=== PATIENT | male | born 1975 | race Caucasian/White ===

== ENCOUNTER 2021-08-20 06:43 | Emergency (ER) | payer OTHER, SELFPAY ==
--- NOTE | ~2021-08-20 | CT_ITS ---
EXAMINATION: CT brain wo con EXAM DATE: 08/20/2021 08:42 INDICATION: Sudden onset of right eye pain . History of glaucoma. Hazy vision. TECHNIQUE: Spiral CT of the head was performed without contrast. Axial, coronal and sagittal images were reviewed. The dose-length product (DLP) for this examination was 605.33 mGy-cm. The exposure w as tailored according to patient size, and iterative reconstruction (ASIR) was used as additional dos e reduction technique. There is no prior study for comparison. FINDINGS: There is no acute intraparenchymal hemorrhage. No evidence of intraparenchymal brain mass lesion. No evidence of acute infarction. There is no mass effect or midline shift. The ventricles are normal in size. There are no extra-axial collections. There are no acute calvarial fractures. T he orbits are unremarkable. Soft tissue is unremarkable. The visualized sinuses and mastoid air rc ls are well aerated. IMPRESSION: 1. No acute intracranial findings. Reviewed, dictated and finalized at location A. VOLTAGE ELECTRICIAN
[2021-08-20 06:49] VITALS: BP 128/80; PULSE 70; RESP 20; TEMP 36.6; O2SAT 98
--- NOTE | 2021-08-20 08:06 | ED.EYEPROB ---
HPI - Eye Problem General Chief complaint: Eye Problems Stated complaint: right eye pain Time Seen by Provider: 08/20/21 08:05 Source: patient and RN notes reviewed Mode of arrival: ambulatory Limitations: no limitations History of Present Illness HPI Narrative: Patient is 46 years old white male woke up this morning with his nurse of the right eye. Few minutes later started having soreness around the eye. Was 10 out of 10, patient had ibuprofen, the soreness improved to 3 out of 10 at this time. History of glaucoma bilaterally, on Lumigan eyedrops. Patient does not use contact lenses or glasses. Patient denies any fever, chills, nausea, vomiting, headache, redness of the eye. The soreness around the eye lasted for about 15 minutes. Patient still feeling hazy of the right Related Data Allergies Allergy/AdvReac Type Severity Reaction Status Date / Time No Known Allergies Allergy Verified 08/20/21 06:54 Review of Systems Review of Systems: CONSTITUTIONAL: Denies fever, chills, or sweats. EYES: Denies redness, discharge ENT: Denies rhinorrhea, congestion, sore throat, or otalgia. CARDIOVASCULAR: Denies chest pain, palpitations, or edema. RESPIRATORY: Denies cough or dyspnea. GASTROINTESTINAL: Denies abdominal pain, nausea, vomiting, or diarrhea. GENITOURINARY: Denies dysuria or hematuria. SKIN: Denies rash or itching. MUSCULOSKELETAL: Denies back pain, joint pain, or myalgia. NEUROLOGIC: Denies headache, numbness, or weakness. PSYCHIATRIC: Denies anxiety or depression. Exam Narrative: General appearance: Well-developed, well-nourished Skin: Normal color Head: Normocephalic, nontraumatic Eyes: Clear conjunctiva, no redness, normal size pupils, IOP is 17 right eye, 14 left eye ENT: Oropharynx normal, ears normal, nose normal Neck: Supple, nontender Chest and respiratory: Airway patent, no respiratory distress, no accessory muscle use Heart: Regular rate/rhythm Abdomen: Soft, nontender, no organomegaly, quiet bowel sounds Vascular: Normal peripheral pulses, normal capillary refill. 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 He suggested that patient can follow-up with his glaucoma doctor tomorrow, and his symptoms does not indicate acute glaucoma at this time even if we do not have the intraocular pressure reading. His right eye 2020 with blurry vision which could indicate dryness of the eye. Artificial teardrops 4 times a day will be appropriate. And if the patient does not like to contact his court operations clerk he can call me aT [phone] Date: 08/20/21 Time: 08:55 Vital Signs Vital signs: Vital Signs Temperature 36.6 C 08/20/21 06:49 Pulse Rate 70 08/20/21 06:49 Respiratory Rate 20 08/20/21 06:49 Blood Pressure 128/80 08/20/21 06:49 Pulse Oximetry 98 08/20/21 06:49 Temperature 36.6 C 08/20/21 06:49 Pulse Rate 70 08/20/21 06:49 Respiratory Rate 20 08/20/21 06:49 Blood Pressure 128/80 08/20/21 06:49 Pulse Oximetry 98 08/20/21 06:49 MDM - Eye Problem MDM Narrative Medical decision making narrative: Sudden onset of right eye pain with blurry vision, right eye visual acuity is 20/20, IOP right eye is 17, left eye is 13 there is no headache, nausea, vomiting. Eye exam showed no redness, no tears, pupil within normal size compared to the left 1. Differential Diagnosis Differential diagnosis: Likely other (Glaucoma) Imaging Data Radiologist's impression: Impressions Head CT 08/20/21 0
[2021-08-20 09:15] VITALS: BP 124/86; PULSE 69; RESP 16; O2SAT 100
== END 2021-08-20 09:15 | disposition home or self-care (01) ==
PROVIDERS: Emergency Provider Emergency Medicine
DX: H53.8 Other visual disturbances (principal); H40.9 Unspecified glaucoma
CPT/HCPCS: 70450; 99284

== ENCOUNTER 2021-12-02 14:50 | Emergency (ER) | payer OTHER, SELFPAY ==
--- NOTE | ~2021-12-02 | XR_ITS ---
EXAMINATION: XR chest 2V Exam Date/Time: 12/02/2021 15:40 CDT HISTORY: cough/SORE THROAT/BODY ACHES SINCE 11/30, NO CARDIAC HX Comparison: None available. RESULT: Lines, tubes, and devices: None. Lungs and pleura: Clear. Cardiomediastinal silhouette: Normal cardiomediastinal silhouette. Other: No acute osseous or upper abdominal finding. IMPRESSION: No acute cardiopulmonary process. Reviewed, dictated and finalized at location K.
[2021-12-02 14:56] VITALS: BP 123/86; PULSE 86; RESP 16; TEMP 36.7; O2SAT 99
--- NOTE | 2021-12-02 15:33 | ED.GENADULT ---
HPI - General Adult General Chief complaint: Unspecified Stated complaint: sore throat, muscle hives Time Seen by Provider: 12/02/21 14:55 Source: RN notes reviewed History of Present Illness HPI narrative: Patient presents emergency department from home for upper respiratory infection. Patient states symptoms began 2 days ago. States that symptoms began with a sore throat states is associated with a cough that is been nonproductive and a temperature up to 100 ?F that was less elevated yesterday he states that he has had no ear pain, rhinorrhea, chest pain, shortness of breath, abdominal pain nausea vomiting diarrhea or any other symptoms. Patient states he has been taking ibuprofen for the symptoms with minimal relief states he has had his COVID vaccination and booster Related Data Home Medications Medication Instructions Recorded Confirmed bimatoprost 0.01 % eye drops drp 12/02/21 (Gigi) bupropion HCl 150 mg 24 hr tablet, tablet PO 12/02/21 extended release trazodone 50 mg tablet tablet 12/02/21 Allergies Allergy/AdvReac Type Severity Reaction Status Date / Time No Known Allergies Allergy Verified 12/02/21 14:59 Review of Systems Review of Systems: Gen.: Reports fevers and muscle aches Eyes: Denies eye pain or visual change ENT: See HPI Respiratory: Denies shortness of breath reports cough CV: Denies chest pain or palpitations GI: Denies abdominal pain nausea, emesis or diarrhea Musculoskeletal: Denies back pain or muscle pain Neuro: Denies numbness, tingling, weakness or focal weakness Skin: Denies rash Except as documented, all other systems reviewed and negative [facility] Past Medical History Medical History (Updated 12/02/21 @ 16:25 by Charlie Menendez DO) Patient denies significant medical history Social History Social History (Updated 12/02/21 @ 15:35 by Charlie Menendez DO) Smoking status: Never smoker Exam Narrative: APPEARANCE: No acute distress, nontoxic, resting in bed EYES: EOMI HEENT: Normocephalic, atraumatic, TMs clear bilaterally nares patent oral mucosa moist erythema the posterior pharynx bilateral tonsils no exudate seen, uvula midline, airway patent, tolerating own secretions, voice normal RESPIRATORY: No respiratory distress Clear to auscultation bilaterally with no rhonchi wheezing or rales. CARDIOVASCULAR: Regular rate and rhythm without murmurs rubs or gallops. ABDOMINAL: Soft, nontender, nondistended, no rebound or guarding MUSCULOSKELETAl: Moves all extremities. No clubbing, cyanosis or edema. NEURO: Awake and alert. Following commands, speech normal, no focal deficits SKIN:: Warm, dry. No rashes lesions or abrasions PSYCHIATRIC: Normal affect/mood, Course Course Emergency Course: Discussed with patient results of workup and diagnosis. Discussed need for follow-up with primary care, proper use of medication, and reasons to return to the emergency department. Patient understands and agrees to current treatment plan discussed with patient need for COVID testing patient would prefer to go home and will testing outpatient in self-isolation until results of testing is returned Vital Signs Vital signs: Vital Signs Temperature 98.1 F 12/02/21 14:56 Pulse Rate 86 12/02/21 14:56 Respiratory Rate 16 12/02/21 14:56 Blood Pressure 123/86 12/02/21 14:56 Pulse Oximetry 99 12/02/21 14:56 Oxygen Delivery Room Air 12/02/21 14:56 Temperature 98.1 F 12/02/21 14:56 Pulse Rate 86 12/02/21 14:56 Respiratory Rate 16 12/02/21 14:56 Blood Pressure 123/86 12/02/21 14:56 Pulse Oximetry 99 12/02/21 14:56 Oxygen Delivery Room Air 12/02/21 14:56 Medical Decision Making Vital Signs Vital Signs: Vital Signs Temperature 98.1 F 12/02/21 14:56 Pulse Rate 86 12/02/21 14:56 Respiratory Rate 16 12/02/21 14:56 Blood Pressure 123/86 12/02/21 14:56 Pulse Oximetry 99 12/02/21 14:56 Oxygen Delivery Room Air 12/02/21 14:56
[2021-12-02] MEDS: IBUPROFEN 600 MG TABLET PO (16:29)
[2021-12-02] MEDS: AMOXICILLIN 500 MG CAPSULE PO (16:29)
[2021-12-02 19:51] LABS: SARS-CoV-2 RNA PCR Negative
== END 2021-12-02 16:34 | disposition home or self-care (01) ==
PROVIDERS: Emergency Provider Emergency Medicine
DX: J02.9 Acute pharyngitis, unspecified (principal); Z20.822 Contact with and (suspected) exposure to COVID-19
CPT/HCPCS: 71046; 87081; 87804; 87880; 99283; A9270; C9803; U0003; U0005

== ENCOUNTER 2021-12-18 21:24 | Emergency (ER) | payer OTHER, SELFPAY ==
--- NOTE | ~2021-12-18 | CT_ITS ---
EXAMINATION: CT abdomen pelvis wo con DATE: 12/19/2021 00:37 INDICATION: Bilateral flank pain TECHNIQUE: Computed tomography (CT) of the abdomen and pelvis was performed without intravenous contr ast. The dose-length product (DLP) was 632.41 mGy-cm. Automated exposure control and iterative recons truction technique were employed. COMPARISON: None FINDINGS: The lung bases are clear. The heart size is normal. There is a 5 mm cyst of the liver. The spleen, pancreas, and adrenal glands are normal. The gallbladder is contracted but normal in appearan ce. There is a 2.1 cm cyst of the left kidney. The right kidney is unremarkable. No stones are identi fied in the kidneys, ureters, or bladder. There is no hydronephrosis or hydroureter. No pathologicall y enlarged abdominal or pelvic lymph nodes are identified. There is no free intraperitoneal gas or ev idence of bowel obstruction. The appendix is normal. There is moderate lumbar spondylosis at L5-S1. A small fat-containing umbilical hernia is noted. IMPRESSION: 1. No CT correlate for the patient's symptoms. No urolithiasis identified. Reviewed, dictated and finalized at location A.
[2021-12-18 21:40] VITALS: BP 137/81; PULSE 74; RESP 20; TEMP 36.4; O2SAT 100
[2021-12-18 22:00] LABS: Appearance Urine Clear (Clear); Bilirubin Urine Negative (Negative); Color Urine Yellow (Yellow); Glucose Urine UA Negative (Negative); Ketones Urine Negative (Negative); Leukocyte Esterase Ur Negative LEU/UL (Negative); Nitrate Urine Negative (Negative); Protein Urine Negative (Negative); Specific Grav Ur >= 1.030 (1.001-1.035); Urobilinogen Urine 0.2 mg/dL (<2.0)
[2021-12-18 22:01] LABS: Add Urine Microscopic? YES; Blood Urine Trace-Intact (Negative)
[2021-12-18 22:04] LABS: Mucus Urine Rare /lpf; RBC Urine 0-2 /hpf (0-2); WBC Urine 0-3 /hpf
--- NOTE | 2021-12-19 00:26 | ED.MALEGU ---
HPI - Male Genitourinary General Chief complaint: Urogenital-Male Stated complaint: bilateral flank pain Time Seen by Provider: 12/19/21 00:05 History of Present Illness HPI Narrative: 46-year-old male presents the emergency room for evaluation of bilateral kidney pain. Patient states that he was recently diagnosed with epididymitis, just completed a course of antibiotics. Patient states that has tenderness to his kidneys, and the pain is worse with rotation of the lumbar spine and when he walks. Patient denies any dysuria. Patient denies any abdominal pain radiating pain or fever. Patient denies nausea vomiting diarrhea or constipation. Related Data Home Medications Medication Instructions Recorded Confirmed bimatoprost 0.01 % eye drops drp 12/02/21 (Gigi) bupropion HCl 150 mg 24 hr tablet, tablet PO 12/02/21 extended release trazodone 50 mg tablet tablet 12/02/21 Allergies Allergy/AdvReac Type Severity Reaction Status Date / Time No Known Allergies Allergy Verified 12/18/21 21:43 Review of Systems Review of Systems: CONSTITUTIONAL: Denies fever, chills, or sweats. EYES: Denies visual changes, redness, or discharge. ENT: Denies rhinorrhea, congestion, sore throat, or otalgia. CARDIOVASCULAR: Denies chest pain, palpitations, or edema. RESPIRATORY: Denies cough or dyspnea. GASTROINTESTINAL: Denies abdominal pain, nausea, vomiting, or diarrhea. GENITOURINARY: Denies dysuria or hematuria. SKIN: Denies rash or itching. MUSCULOSKELETAL: Reports lower back pain NEUROLOGIC: Denies headache, numbness, dizziness, or weakness. PSYCHIATRIC: Denies anxiety or depression. PMFSH Past Medical History Medical History Patient denies significant medical history Social History Social History Smoking status: Never smoker Exam Narrative: GENERAL: Well-appearing, well-nourished, no physical limitations, and in no acute distress. HEAD: Normocephalic, atraumatic. EYES: Conjunctivae normal, PERRLA and EOMI. CHEST: Clear to auscultation. No respiratory distress. No wheezes rales or rhonchi. No tenderness. HEART: Regular rate and rhythm. No murmur heard. Normal peripheral pulses. ABDOMEN: Soft, nontender, nondistended, normal active bowel sounds. BACK: No CVA tenderness; No midline lumbar tenderness, step-offs, bony abnormality; FROM; able to do it with bilateral rotation EXTREMITIES: Normal range of motion. No edema. No clubbing or cyanosis SKIN: Warm, dry, no rash. No noted wounds NEURO: No focal deficits. Alert and oriented x3. MAEW. CN's II-XI intact bilaterally, normal gait PSYCH: Cooperative. Normal mood and affect. Course Vital Signs Vital signs: Vital Signs Temperature 36.4 C 12/18/21 21:40 Pulse Rate 74 12/18/21 21:40 Respiratory Rate 20 12/18/21 21:40 Blood Pressure 137/81 12/18/21 21:40 Pulse Oximetry 100 12/18/21 21:40 Oxygen Delivery Room Air 12/18/21 21:40 Temperature 36.4 C 12/18/21 21:40 Pulse Rate 74 12/18/21 21:40 Respiratory Rate 20 12/18/21 21:40 Blood Pressure 137/81 12/18/21 21:40 Pulse Oximetry 100 12/18/21 21:40 Oxygen Delivery Room Air 12/18/21 21:40 MDM - Male Genitourinary MDM Narrative Medical decision making narrative: 46-year-old male presented the emergency room complaints of lower back pain. Patient commented that he felt like his kidneys were in pain. Patient demonstrated no CVA tenderness. Tenderness was localized to the lower back/thoracolumbar fascia. Pain was worse with rotational movements bilaterally. Urine was clean for any signs of infection or hematuria. CT scan demonstrated no intra-abdominal abnormalities. Patient was encouraged to follow-up with his urologist tomorrow. Lab Data Labs: Lab Results 12/18/21 Range/Units 21:49 Urine Color Yellow (Yellow) Urine Appearance Clear (Clear) Uri
[2021-12-19 02:27] VITALS: BP 132/91; PULSE 63; RESP 16; O2SAT 98
== END 2021-12-19 02:28 | disposition home or self-care (01) ==
PROVIDERS: Emergency Medicine; Emergency Provider Nurse Practitioner Family
DX: M54.50 Low back pain, unspecified (principal)
CPT/HCPCS: 74176; 81001; 99284

== ENCOUNTER 2021-12-26 15:05 | Emergency (ER) | payer OTHER, SELFPAY ==
[2021-12-26 15:15] VITALS: BP 106/76; PULSE 108; RESP 20; TEMP 36.8; O2SAT 98
[2021-12-26 15:31] LABS: Basophils Percent Auto 0.2 % (0.2-1.2); Eosinophils Percent Auto 0.1 % (0-4.4); Hematocrit 46.5 % (42.0-52.0); Immature Granulocyte Absolute 0.04 K/mm3 (0.00-0.031); Immature Granulocyte Percent A 0.4 % (0-0.5); Lymphocytes Absolute Auto 0.66 K/mm3 (0.9-3.2); Lymphocytes Percent Auto 6.1 % (18.3-44.2); Mean Corpuscular HGB Conc 34.4 g/dl (32-36); Mean Corpuscular Hemoglobin 29.4 pg (26-34); Mean Corpuscular Volume 85.5 fl (80-100); Mean Platelet Volume 10.1 fl (7.4-10.4); Monocytes Absolute Auto 0.7 K/mm3 (0.1-0.6); Neutrophils Absolute Auto 9.5 K/mm3 (1.3-6.7); Neutrophils Percent Auto 87.2 % (45.5-73.1); Platelet Count Result 267 k/mm3 (150-375); Red Blood Count 5.44 M/mm3 (4.6-6.20); Red Cell Distribution Width 13.9 % (11.5-14.5); White Blood Count 10.8 K/mm3 (4.5-10.0)
[2021-12-26 15:46] LABS: Alanine Aminotransferase 51 U/L (6-50); Albumin Level 4.7 g/dL (3.5-5.1); Alkaline Phosphatase 90 U/L (38-126); Anion Gap 9 mmol/L (8-16); Aspartate Amino Transferase 35 U/L (17-59); Bilirubin,Total 0.8 mg/dL (0.2-1.3); Blood Urea Nitrogen 13 mg/dL (9-20); Calcium 8.7 mg/dL (8.4-10.2); Carbon Dioxide 22 mmol/L (22-30); Chloride 107 mmol/L (98-107); Estimated CRCL calculation 120 ml/min; Estimated Glomerular Filt Rate > 60; Glucose 138 mg/dL (65-110); Lipase 63 U/L (23-300); Potassium 3.6 mmol/L (3.4-5.0); Sodium 138 mmol/L (137-145)
[2021-12-26 16:01] LABS: Appearance Urine Slightly Cloudy (Clear); Bilirubin Urine Negative (Negative); Blood Urine Negative (Negative); Color Urine Yellow (Yellow); Glucose Urine UA Negative (Negative); Ketones Urine Trace mg/dL (Negative); Leukocyte Esterase Ur Negative LEU/UL (Negative); Nitrate Urine Negative (Negative); Protein Urine Negative (Negative); Specific Grav Ur >= 1.030 (1.001-1.035); Urobilinogen Urine 0.2 mg/dL (<2.0); pH Urine 5.5 (5.0-9.0)
[2021-12-26 16:08] LABS: Amorphous Sediment Urine Few; Mucus Urine Heavy /lpf; Squamous Epithelial Cell Urine Rare /hpf (Few); WBC Urine 0-3 /hpf
[2021-12-26 16:12] LABS: Add Urine Microscopic? YES
[2021-12-26 16:28] VITALS: RESP 18
[2021-12-26 16:48] LABS: SARS-CoV-2 RNA PCR Negative
[2021-12-26] MEDS: ONDANSETRON INJ 4 MG/2 ML VIAL IV PUSH (16:48)
[2021-12-26] MEDS: SODIUM CHLORIDE 0.9% IV 1,000 ML 999 ML IV CONT (16:48)
--- NOTE | 2021-12-26 16:56 | ED.GENADULT ---
HPI - General Adult General Chief complaint: Nausea/Vomiting/Diarrhea Stated complaint: coughing, diarrhea, body aches Time Seen by Provider: 12/26/21 15:56 History of Present Illness HPI narrative: 46-year-old male presents to the emergency room for evaluation of nonbilious and nonbloody vomiting along with diarrhea. Patient states he was recently camping, when several of the people that he was camping with came down with vomiting and diarrhea. Patient denies any abdominal pain. Denies fever. Related Data Home Medications Medication Instructions Recorded Confirmed bimatoprost 0.01 % eye drops drp 12/02/21 (Gigi) bupropion HCl 150 mg 24 hr tablet, tablet PO 12/02/21 extended release trazodone 50 mg tablet tablet 12/02/21 Allergies Allergy/AdvReac Type Severity Reaction Status Date / Time No Known Allergies Allergy Verified 12/26/21 17:04 Review of Systems Review of Systems: CONSTITUTIONAL: Denies fever, chills, or sweats. EYES: Denies visual changes, redness, or discharge. ENT: Denies rhinorrhea, congestion, sore throat, or otalgia. CARDIOVASCULAR: Denies chest pain, palpitations, or edema. RESPIRATORY: Denies cough or dyspnea. GASTROINTESTINAL: Reports nausea, vomiting, and diarrhea. GENITOURINARY: Denies dysuria or hematuria. SKIN: Denies rash or itching. MUSCULOSKELETAL: Denies back pain, joint pain, or myalgia. NEUROLOGIC: Denies headache, numbness, dizziness, or weakness. PSYCHIATRIC: Denies anxiety or depression. PMFSH Past Medical History Medical History Patient denies significant medical history Social History Social History Smoking status: Never smoker Exam Narrative: GENERAL: Well-appearing, well-nourished, no physical limitations, and in no acute distress. HEAD: Normocephalic, atraumatic. EYES: Conjunctivae normal, PERRLA and EOMI. CHEST: Clear to auscultation. No respiratory distress. No wheezes rales or rhonchi. No tenderness. HEART: Regular rate and rhythm. No murmur heard. Normal peripheral pulses. ABDOMEN: Soft, nontender, nondistended, normal active bowel sounds. EXTREMITIES: Normal range of motion. No edema. No clubbing or cyanosis SKIN: Warm, dry, no rash. No noted wounds NEURO: No focal deficits. Alert and oriented x3. MAEW. CN's II-XI intact bilaterally, normal gait PSYCH: Cooperative. Normal mood and affect. Course Vital Signs Vital signs: Vital Signs Temperature 36.8 C 12/26/21 15:15 Pulse Rate 108 H 12/26/21 15:15 Respiratory Rate 20 12/26/21 15:15 Blood Pressure 106/76 12/26/21 15:15 Pulse Oximetry 98 12/26/21 15:15 Oxygen Delivery Room Air 12/26/21 15:15 Temperature 36.8 C 12/26/21 15:15 Pulse Rate 108 H 12/26/21 15:15 Respiratory Rate 18 12/26/21 16:28 Blood Pressure 106/76 12/26/21 15:15 Pulse Oximetry 98 12/26/21 15:15 Oxygen Delivery Room Air 12/26/21 15:15 Medical Decision Making Vital Signs Vital Signs: Vital Signs Temperature 36.8 C 12/26/21 15:15 Pulse Rate 108 H 12/26/21 15:15 Respiratory Rate 20 12/26/21 15:15 Blood Pressure 106/76 12/26/21 15:15 Pulse Oximetry 98 12/26/21 15:15 Oxygen Delivery Room Air 12/26/21 15:15 Temperature 36.8 C 12/26/21 15:15 Pulse Rate 108 H 12/26/21 15:15 Respiratory Rate 18 12/26/21 16:28 Blood Pressure 106/76 12/26/21 15:15 Pulse Oximetry 98 12/26/21 15:15 Oxygen Delivery Room Air 12/26/21 15:15 Lab Data Result diagrams: 12/26/21 15:24 12/26/21 15:24 Labs: Lab Results 12/26/21 12/26/21 12/26/21 Range/Units 15:24 15:24 15:46 WBC 10.8 H (4.5-10.0) K/mm3 RBC 5.44 (4.6-6.20) M/mm3 Hgb 16.0 (14.0-18.0) g/dL Hct 46.5 (42.0-52.0) % MCV 85.5 (80-100) fl MCH 29.4 (26-34) pg MCHC 34.4 (32-36) g/dl RDW 13.9 (11.5-14.5) % Plt Count 267
== END 2021-12-26 18:00 | disposition home or self-care (01) ==
PROVIDERS: Emergency Medicine; Emergency Provider Nurse Practitioner Family
DX: K52.9 Noninfective gastroenteritis and colitis, unspecified (principal); Z20.822 Contact with and (suspected) exposure to COVID-19
CPT/HCPCS: 36415; 80053; 81001; 83690; 85025; 96361; 96374; 99284; C9803; J2405; J7030; U0003; U0005

== ENCOUNTER 2022-04-12 07:37 | Emergency (ER) | payer OTHER, SELFPAY ==
--- NOTE | ~2022-04-12 | XR_ITS ---
EXAMINATION: XR chest 1V portable INDICATION: Cough and congestion TECHNIQUE: Portable AP chest at 0820 hours COMPARISON: 12/02/2021 FINDINGS: There are minimal airspace opacities of the left lung base. No pleural effusion or pneumoth orax. The cardiomediastinal silhouette is normal. IMPRESSION: 1. Minimal left basilar airspace opacity, consistent with atelectasis versus pneumonia. Reviewed, dictated and finalized at location B. IMPRESSION: 1. Minimal left basilar airspace opacity, consistent with atelectasis versus pn eumonia.
[2022-04-12 07:40] VITALS: BP 135/78; PULSE 88; RESP 16; TEMP 36.4; O2SAT 98
--- NOTE | 2022-04-12 07:48 | ED.URI ---
HPI - URI/Sore Throat General Chief Complaint: Upper Respiratory Infection Stated Complaint: congestion Time Seen by Provider: 04/12/22 07:48 Source: patient Mode of arrival: ambulatory Limitations: no limitations History of Present Illness HPI Narrative: 46 old drove himself to the emergency room complaining of runny nose, nasal and postnasal discharge, sore throat, productive cough of clear sputum started 4 to 5 days ago. His little kids had similar symptoms 2 days prior to that, his got sick 3 days ago, today feeling much better. Patient tested negative for COVID at home, he denies any fever or chills. Related Data Home Medications Medication Instructions Recorded Confirmed bimatoprost 0.01 % eye drops drp 12/02/21 (Gigi) bupropion HCl 150 mg 24 hr tablet, tablet PO 12/02/21 extended release Allergies Allergy/AdvReac Type Severity Reaction Status Date / Time No Known Allergies Allergy Verified 12/26/21 17:04 Review of Systems Review of Systems: All systems reviewed & are unremarkable except as noted in HPI and below PMFSH Past Medical History Medical History Patient denies significant medical history Social History Social History Smoking status: Never smoker Exam Narrative: General appearance: Well-developed, well-nourished Skin: Normal color Head: Normocephalic, nontraumatic Eyes: Clear conjunctiva ENT: Erythematous oropharynx, rhinorrhea Neck: Supple, nontender Chest and respiratory: Airway patent, no respiratory distress, no accessory muscle use Heart: Regular rate/rhythm Abdomen: Soft, nontender, no organomegaly, quiet bowel sounds Vascular: Normal peripheral pulses, normal capillary refill. 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 motor deficit Course Course Emergency Course: Respiratory viral infection is my concern, Vital Signs Vital signs: Vital Signs Temperature 36.4 C 04/12/22 07:40 Pulse Rate 88 04/12/22 07:40 Respiratory Rate 16 04/12/22 07:40 Blood Pressure 135/78 04/12/22 07:40 Pulse Oximetry 98 04/12/22 07:40 Oxygen Delivery Room Air 04/12/22 07:40 Temperature 36.4 C 04/12/22 07:40 Pulse Rate 88 04/12/22 07:40 Respiratory Rate 16 04/12/22 07:40 Blood Pressure 135/78 04/12/22 07:40 Pulse Oximetry 98 04/12/22 07:40 Oxygen Delivery Room Air 04/12/22 07:40 MDM - URI/Sore Throat Differential Diagnosis Differential diagnosis: Likely upper respiratory infection, sinusitis, viral infection, bronchitis, influenza and pharyngitis Lab Data Labs: Lab Results 04/12/22 Range/Units 08:21 Influenza A (RT-PCR) Negative (Negative) Influenza B (RT-PCR) Negative (Negative) SARS-CoV-2 RNA (RT-PCR) Negative Imaging Data Radiologist's impression: Impressions Chest X-Ray 04/12/22 08:25 IMPRESSION: 1. Minimal left basilar airspace opacity, consistent with atelectasis versus pneumonia. Critical Care Time Critical Care Time Critical Care Time: No Discharge Plan Discharge Clinical Impression: Upper respiratory infection, viral Patient Disposition: Home, Self-Care Condition: Stable Instructions: Antibiotic Form, Upper Respiratory Infection (ED), Viral Syndrome (ED) Additional Instructions: Return if symptoms are worsening , call your family physician for appointment, take Tylenol as as needed for aches and pain, continue home medications. Ibuprofen 600 every 6 hours as needed Prescriptions: New
[2022-04-12 09:03] LABS: Influenza A QL RT-PCR Negative (Negative); Influenza B QL RT-PCR Negative (Negative); SARS-CoV-2 RNA PCR Negative
[2022-04-12 09:30] VITALS: BP 132/78; PULSE 70; RESP 18; O2SAT 98
== END 2022-04-12 09:30 | disposition home or self-care (01) ==
PROVIDERS: Emergency Provider Emergency Medicine
DX: J06.9 Acute upper respiratory infection, unspecified (principal); Z20.822 Contact with and (suspected) exposure to COVID-19; R91.8 Other nonspecific abnormal finding of lung field
CPT/HCPCS: 71045; 87502; 99283; C9803; U0003; U0005

== ENCOUNTER 2024-02-16 15:24 | Emergency (ER) | payer OTHER, SELFPAY ==
--- NOTE | ~2024-02-16 | XR_ITS ---
EXAM: XR finger 5th RT min 2V DATE: 02/16/2024 16:01 HISTORY: injury . COMPARISON: None available. FINDINGS: Normal mineralization. No fracture or dislocation. No lytic or blastic lesion. Joint space s and physes are maintained. No erosion or periosteal change. Soft tissue irregularity and punctate r adiopaque debris over the lateral tip of the fifth digit. IMPRESSION: No acute osseous finding in the right fifth digit. Soft tissue irregularity and debris ov er the lateral aspect of the tip of the fifth digit. Reviewed, dictated and finalized at location K. IMPRESSION: No acute osseous finding in the right fifth digit. Soft tissue irre gularity and debris over the lateral aspect of the tip of the fifth digit.
[2024-02-16 15:33] VITALS: BP 119/91; PULSE 85; RESP 20; TEMP 36.8; O2SAT 99
[2024-02-16] MEDS: LIDOCAINE HCL 1% LOCAL INJ 10 ML VIAL INFILTRATE (17:48)
[2024-02-16 17:58] VITALS: BP 131/88; PULSE 76; RESP 16; O2SAT 95
--- NOTE | 2024-02-16 18:36 | ED.UPPEXIN ---
HPI - Extremity Injury (Upper) General Chief Complaint: Extremity Injury, Upper Stated Complaint: hand vs concrete slab Time Seen by Provider: 02/16/24 15:39 Source: patient Mode of arrival: ambulatory Limitations: no limitations History of Present Illness HPI narrative: This is a 48 year old male that presents to the ER for laceration of the right 5th finger sustained just prior to arrival. Reports he accidentally dropped a paving stone brick on his hand. He is up-to-date on tetanus. Denies decreased range of motion or numbness. Related Data Home Medications Medication Instructions Recorded Confirmed bimatoprost 0.01 % eye drops drp 12/02/21 (Gigi) bupropion HCl 150 mg 24 hr tablet, tablet PO 12/02/21 extended release Allergies Allergy/AdvReac Type Severity Reaction Status Date / Time No Known Allergies Allergy Verified 12/26/21 17:04 Review of Systems Review of Systems: CONSTITUTIONAL: Denies fever SKIN: Reports laceration NEUROLOGIC: Denies numbness All systems reviewed & are unremarkable except as noted in HPI and below PMFSH Past Medical History Medical History Patient denies significant medical history Social History Social History Smoking status: Never smoker Exam Narrative: GENERAL: Well-appearing, well-nourished, and in no acute distress. HEAD: Normocephalic, atraumatic. EYES: EOMI. EXTREMITIES: Normal range of motion. No edema. Right 5th finger with 1.5cm irregular laceration to the distal phalanx. Normal capillary refill. Normal sensation SKIN: Warm, dry, no rash. NEURO: No focal deficits. Alert and oriented x3. PSYCH: Normal mood and affect Course Vital Signs Vital signs: Vital Signs Temperature 98.2 F 02/16/24 15:33 Pulse Rate 85 02/16/24 15:33 Respiratory Rate 20 02/16/24 15:33 Blood Pressure 119/91 H 02/16/24 15:33 Pulse Oximetry 99 02/16/24 15:33 Oxygen Delivery Room Air 02/16/24 15:33 Temperature 98.2 F 02/16/24 15:33 Pulse Rate 76 02/16/24 17:58 Respiratory Rate 16 02/16/24 17:58 Blood Pressure 131/88 02/16/24 17:58 Pulse Oximetry 95 02/16/24 17:58 Oxygen Delivery Room Air 02/16/24 15:33 Procedures Laceration Laceration 1: Date: 02/16/24 Time: 18:41 Site: hand Side (If applicable): right Size (cm): 1.5 Description: irregular Depth: simple, single layer Local Anesthetic: lidocaine 1% Amount of anesthesia used (mL): 2 Pre-repair: wound explored, irrigated, minor debridement and deep structures intact ====== Skin Level ====== Skin layer closed with: nylon Size (cm): 4-0 Number of sutures: 3 Technique: simple, interrupted ====== Subcutaneous Layer ====== ====== Muscle Layer ====== ====== Tendon Layer ====== MDM - Extremity Injury (Upper) MDM Narrative Medical decision making narrative: Patient presents the emergency department for laceration of the right 5th finger sustained just prior to arrival. Patient is neurovascularly intact. Right 5th finger x-ray without acute osseous abnormalities. Patient's wound was irrigated and closed with sutures. He is up-to-date on tetanus. He was educated on further wound care. He is to follow up with primary provider. He was given warnings to return to the ER Differential Diagnosis Differential diagnosis: Likely other (laceration, abrasion, avulsion of skin) Imaging Data Radiologist's impression: ITS Impressions Finger X-Ray 02/16/24 16:10 IMPRESSION: No acute osseous finding in the right fifth digit. Soft tissue irregularity and debris over the lateral aspect of the tip of the fifth digit. Critical Care Time Critical Care Time Critical Care Time: No Discharge Plan Discharge Clinical Impression: Laceration Patie
== END 2024-02-16 18:56 | disposition home or self-care (01) ==
PROVIDERS: Emergency Provider Physician Assistant
DX: S61.216A Laceration without foreign body of right little finger without damage to nail, initial encounter (principal); W20.8XXA Other cause of strike by thrown, projected or falling object, initial encounter
CPT/HCPCS: 12001; 73140; 99283

== ENCOUNTER 2025-03-28 17:13 | Emergency (ER) | payer OTHER, SELFPAY ==
[2025-03-28 17:14] VITALS: BP 136/88; PULSE 78; RESP 16; TEMP 36.6; O2SAT 99
--- OUTSIDE RECORDS SUMMARY | 2025-03-28 17:16 | XMS_ITS | Clinical Summary ---
Author Organization [facility] Address [address] [place] [address] Care Team Providers Care Sales And Training Specialist Name Role Phone Emilie Argueta DO, Carter Primary Care Provider [phone] Source Comments [facility],non-owned Affiliates and Associated Physician Practices is amultiple site organization consisting of ambulatory clinics and hospital sitesin [place], [place], [place] and [place]. This disclosure is being madepursuant to the Care Everywhere program and may not contain all information available regarding this patient. Last updated 18.[facility] Social History Tobacco Use Types Packs/Day Years Used Date Smoking Tobacco: Never Assessed Sex and Gender Information Value Date Recorded Sex Assigned at Not on file Legal Sex Male 6:11 AM DISINTEGRATOR Gender Identity Not on file Sexual Orientation Not on file Plan of Treatment Health Maintenance Due Date Last Done Comments COLOGUARD (AGES 45-75) - COL ON CA SCREENING 1975 COLON MONITORING 1975 COLONOSCOPY - COLON CA SCREENING 1975 CT COLONOGRAPHY - COLON CA SCREENING 1975 Colorectal Cancer Screening 1975 FIT - COLON CA SCREENING 1975 FLEX SIG - COLON CA SCREENING 1975 LIPID TESTING 1975 HIV SCREENING 1990 HEPATITIS C SCREENING 06/25/1993 DTAP/TDAP/TD VACCINES (1 - Tdap) 1994 HEPATITIS B VACCINE (1 of 3 - 19+ 3-dose series) 1994 DEPRESSION SCREENING 06/24/2024 COVID-19 VACCINE (2023-2 5 season) 2025 INFLUENZA VACCINE (#1) 2025 ZOSTER VACCINE (1 of 2) 2025 HIB VACCINE Aged Out No longer eligi ble based on patient's age to complete this topic HPV VACCINE Aged Out No longer eligi ble based on patient's age to complete this topic MENINGOCOCCAL (Group B) VACC INE SHARED DECISION-MAKING Aged Out No longer eligibl e based on patient's age to complete this topic MENINGOCOCCAL GROUPS A/C/Y/W VACCINE Aged Out No longer eligible b ased on patient's age to complete this topic Care Teams Sales And Training Specialist Relationship Specialty Start Date End Date [address] [place] [address] PCP - General 02/24/08
--- OUTSIDE RECORDS SUMMARY | 2025-03-28 17:16 | XMS_ITS | Patient Health Record ---
Author Organization [facility] Address [address] [place], [place] [id number] Care Team Providers Care Product Managent Intern Name Role Phone [facility] [place] [facility] ry Care Provider Unavailable Allergies No Known Allergies Reason For Referral No Information Plan Of Treatment No Information Insurance Providers Payer Name Payer Address Payer Phone Subscriber Number Group Number Insured Name Patient Relationship to Insured Coverage Start Date Coverage End Date [facility] [address] [place] [address] [id number] Sae Hutchins Self - patient is the insured Medical (General) History Medical History History ICD Code acid reflux Leg/Feet cramps skin cancer Sleep apnea Back Trouble varicose veins
--- OUTSIDE RECORDS SUMMARY | 2025-03-28 17:16 | XMS_ITS | Clinical Summary ---
Author Organization [facility] Address [address] [place] [address] Care Team Providers Care Bulldogger Name Role Phone Hitesh Ulloa Primary Care Provider [phone] Allergies No known active allergies Medications bimatoprost 0.01 % Solution 1 drop nightly at bedtime. Active traMADol 50 MG tabletIndicatio ns:Acute Pain < 3 Day Supply Take 1 tablet (50 mg total) by mouth every 6 (six) hours as needed for Pain. Indications: Acute Pain < 3 Day Supply 10 tablet 10/10/2020 Active traZODone (DESYREL) 50 MG tablet 01/19/2022 Active buPROPion XL (WELLBUTRIN XL) 150 MG 24 hr tablet 01/19/2022 Active Active Problems No known active problems Immunizations Immunization Administration Dates Next Due Tdap (Adacel) 01/30/2020 Family History Medical History Relation Comments Diabetes Father Heart Disease Maternal Grandfather Cancer Mother Diabetes Mother None Neg Hx Relation Status Comments Father Alive Maternal Grandfather Mother Alive Social History Tobacco Use Types Packs/Day Years Used Date Smoking Tobacco: Never Smokeless Tobacco: Never Tobacco Cessation:Counseling Given: No Alcohol Use Standard Drinks/Week Comments Yes 0 (1 standard drink = 0.6 oz pur e alcohol) occassiona; AUDIT-C Answer Date Recorded Frequency of Alcohol Consumption Never 03/24/2018 Average Number of Drinks Not on file 018 Frequency of Binge Drinking Not on file 06/2017 PHQ-2 Answer Date Recorded PHQ-2 Score - If the patient scores above 3, please move on to questions 3-9 0 01/23/2022 Sex and Gender Information Value Date Recorded Sex Assigned at Not on file Legal Sex Male 7:53 PM CDT Gender Identity Not on file Sexual Orientation Not on file Last Filed Vital Signs Vital Sign Reading Time Taken Comments Blood Pressure 118/62 01/23/2022 2:14 PM CDT Pulse 68 01/23/2022 2:14 PM CDT Temperature 36.2 C (97.1 F) 01/23/2022 2:14 PM CDT Respiratory Rate 16 10/25/2021 6:12 PM CDT Oxygen Saturation 97% 01/23/2022 2:14 PM CDT Inhaled Oxygen Concentration - - Weight 103 kg (227 lb) 01/23/2022 2:14 PM CDT Height 190.5 cm (6' 3) 01/23/2022 2:14 PM CDT Body Mass Index 28.37 01/23/2022 2:14 PM CDT Plan of Treatment Health Maintenance Due Date Last Done Comments Colorectal Cancer Screening Colonoscopy (10 Years) 1975 Annual Physical 1978 Hepatitis C 1993 Hepatitis B Vaccines (1 of 3 - 19+ 3-dose series) 1994 COVID-19 Vaccine (1 - 2023-2 5 season) 2025 DTaP, Tdap and Td Vaccines ( 2 - Td or Tdap) 01/29/2030 01/30/2020 Meningococcal B Vaccine Aged Out No l onger eligible based on patient's age to complete this topic Meningococcal Vaccine Aged Out No dany junito eligible based on patient's age to complete this topic Pneumococcal Vaccine: Pediat rics (0 to 5 Years) and At-Risk Patients (6 to 49 Years) Aged Out No longer eligi ble based on patient's age to complete this topic RSV Immunizations Under 20 Months Aged Out No longer eligible based on patient's age to complete this topic Insurance Care Teams Bulldogger Relationship Specialty Start Date End Date Hitesh Ulloa PA [address] [place] [address] PCP - General PHYSICIAN SEWING TECHNIQUES DEMONSTRATOR 03/24/18
--- OUTSIDE RECORDS SUMMARY | 2025-03-28 17:16 | XMS_ITS | Patient Health Record ---
Author Organization 1 OF [facility] Address [address] [place] [id number] Care Team Providers Care Maintenance Service Supervisor Name Role Phone UNKNOWN, UNKNOWN Primary Care Provider Unavailab Abena Tate Unavailable [phone] Allergies No Known Allergies Reason For Referral No Information Medications Medication SIG (Take, Route, Frequency, Duration) Notes Start Date End Date Status Lumigan Active Fenofibrate Active Fluoxetine Active Social History Tobacco Use: Social History Observation Description Date Details (start date - stop date) Current Smoker NA - NA Social History Tobacco Use: Social Info Question Answer Notes Tobacco Control (Standard) Tobacco use: Current smoker Additional Details Category Social Info Options Details Miscellaneous: Exercise: 3-4 times per week Drugs/Alcohol: Alcohol use: Social alcoho l use Recreational drugs Patient denie s recreational drug use Vital Signs Height 76 in 10/14/2024 Weight 230 lbs 10/14/2024 BMI 27.99 kg/m2 10/14/2024 Encounters Encounter Location Date Provider Diagnosis [facility] [address] [place] [id number] 10/14/2024 Abena Farooq Synovitis of right foot M65.971 ; Tailor's bunion of right foot M21.621 ; Callus of foot L84 ; Tendinitis of ankle M77.50 ; Tailor's bunion of left foot M21.622 ; Right foot pain M79.671 and Left foot pain M79.672 1 OF Stephenie [facility] [address] [address] 12/31/2024 Abena Farooq Assessments Encounter Date Diagnosis (ICD Code) Assessment Notes Treatment Notes Treatment Clinical Notes Section Notes 10/14/2024 Tailor's bunion of right foot (ICD-10 - M21.621) I discussed his tailor bunion deformities. I discussed conservative treatment of avoiding shoes with a narrow toe box and use of a gel tailor's bunion pad. I explained that some of the pain could be to increased pressure on the lateral column when he ambulates. I discussed the use of custom orthotics may help to decrease pressure to the fifth metatarsophalangeal joint. I also discussed that surgical intervention is an option, should he fail conservative treatment. 10/14/2024 Synovitis of right foot (ICD-10 - M65.971) 10/14/2024 Callus of foot (ICD-10 - L84) Recommended trimming of the hyperkeratotic lesions. 10/14/2024 Tendinitis of ankle (ICD-10 - M77.50) Patient visit today included a review of medical history, review of systems, physical exam and discussion of exam findings, diagnostic test results, and discussion of diagnoses and treatment options. Recommended initial treatment today consisting of resting, icing and elevating the foot as needed for pain. He can take anti-inflammatory medication as needed for pain. I discussed potential use of an ankle brace for stability for the ankle. This was dispensed today. I discussed the importance of wearing good supportive shoes. Discussed benefits of orthotics which I advised can potentially improve alignment and stability of the lower extremity as well as improve shock absorption of the foot and ankle which may help alleviate symptoms associated with this condition. We'll check his insurance coverage for custom orthotics. 10/14/2024 Tailor's bunion of left foot (ICD-10 - M21.622) 10/14/2024 Right foot pain (ICD-10 - M79.671) 10/14/2024 Left foot pain (ICD-10 - M79.672) Plan Of Treatment No Information Insurance Providers Payer Name Payer Address Payer Phone Subscriber Number Group Number Insured Name Patient Relationship to Insured Coverage Start Date Coverage End Date [facility] [address] [phone] [id number] Sae Martinez Self - patient is the insured Medical (General) History Medical History History ICD Code Depression Anxiety Surgical History Surgery Date(Month/Year) Glaucoma surgery
--- OUTSIDE RECORDS SUMMARY | 2025-03-28 17:16 | XMS_ITS | Clinical Summary ---
Author Organization [address] Address [address] [place] [id number] Care Team Providers Care Flame Planer Name Role Phone [facility], Vinny Galindo MD Primary Care P rovider Allergies Active Allergy Reactions Criticality Noted Date Comments Allergy Prescription Mix Unknown 03/03/2024 Medications bimatoprost (LUMIGAN) 0.01 % ophthalmic drops 1 drop daily Active buPROPion XL (WELLBUTRIN XL) 150 mg 24 hr tablet 01/20/20 22 Active loratadine (CLARITIN) 10 mg tablet 11/25/19 24 Active traMADoL (ULTRAM) 50 mg tablet Take 1 tablet (50 mg total) by mouth every 6 (six) hours as needed 10/11/19 21 Active traZODone (DESYREL) 50 mg tablet 01/20/20 22 Active famotidine (PEPCID) 20 mg tablet Take 1 tablet (20 mg total) by mouth 06/25/19 24 Active fenofibrate nanocrystallized (TRICOR) 145 mg tablet Take 1 tablet (145 mg total) by mouth 07/05/19 24 Active ipratropium (ATROVENT) 21 mcg (0.03 %) nasal spray Administer into affected nostril(s) 01/12/20 23 Active ketoconazole (NIZORAL) 2 % cream Apply topically 06/25/19 24 Active omeprazole (PriLOSEC) 40 mg capsule Take 1 capsule (40 mg total) by mouth 06/25/19 24 Active sildenafiL (VIAGRA) 50 mg tablet Take 1 tablet (50 mg total) by mouth 01/20/20 24 Active testosterone cypionate (DEPO-TESTOTERONE) 200 mg/mL injection Inject into the muscle as instructed 02/19/20 24 Active valACYclovir (VALTREX) 1 gram tablet Take 1 tablet (1,000 mg total) by mouth 01/06/20 24 Active benzonatate (TESSALON) 200 mg capsuleIndications:A cute lower respiratory infection Take 1 capsule (200 mg total) by mouth 3 (three) times a day as needed for cough keep tessalon out of reach of children, especially children under the age of 10, due to possible serious risk such as if ingested by children under the age of 10. 30 capsule 03/03/20 24 Active Active Problems Problem Noted Date Diagnosed Date Acute conjunctivitis 03/03/2024 Overview (03/03/2024): L eye Acute otitis media 03/03/2024 Adjustment disorder with anxious mood 03/03/2024 Adjustment disorder with depressed mood 03/03/20 24 Stress and adjustment reaction 03/03/2024 Allergic rhinitis 03/03/2024 Allergic rhinitis, unspecified 03/03/2024 Mental disorder 03/03/2024 Overview (03/03/2024): 70 as of last meeting Depressive disorder 03/03/2024 Depression, unspecified 03/03/2024 Unspecified mood (affective) disorder 03/03/2024 Anxiety disorder, unspecified 03/03/2024 Atopic dermatitis 03/03/2024 Blepharitis 03/03/2024 Chronic post-traumatic stress disorder (PTSD) Cobalamin deficiency 03/03/2024 Common cold 03/03/2024 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 Overview (03/03/2024): faint haze Erectile dysfunction due to diseases classified elsewhere 03/03/2024 Erectile dysfunction 03/03/2024 Exposure to potentially hazardous substance 02/22 Gastroesophageal reflux disease 03/03/2024 Glaucoma suspect due to corticosteroid use 03/03 Herpes labialis 03/03/2024 Hordeolum internum of left eye 03/03/2024 Overview (03/03/2024): LLL Skin neoplasm 03/03/2024 Astigmatism 03/03/2024 Glaucoma 03/03/2024 Hyperopia 03/03/2024 Myopia 03/03/2024 Insomnia, unspecified 03/03/2024 Lumbago 03/03/2024 Major depressive disorder, recurrent, mild 03/03 Onychomycosis of toenail 03/03/2024 Other seborrheic dermatitis 03/03/2024 Seborrheic dermatitis 03/03/2024 Pain of finger 03/03/2024 Presbyopia 03/03/2024 Pure hyperglyceridemia 03/03/2024 Hypertriglyceridemia 03/03/2024 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 Tinea pedis 03/03/2024 Vitamin D deficiency 03/03/2024 Social History Tobacco Use Types Packs/Day Years Used Date Smoking Tobacco: Never Assessed Sex and Gender Information Value Date Recorded Sex Assigned at Not on file Legal Sex Male 12:03 AM PLEAT TAPER Gender Identity Not on file Sexual Orientation Not on file Obstetrics History Last Filed Vital Signs Vital Sign Reading Time Taken Comments Blood Pressure 100/74 03/03/2024 9:42 AM CDT Pulse 76 03/03/2024 9:54 AM CDT Temperature 36.8 C (98.3 F) 03/03/2024 9:42 AM CDT Respiratory Rate 18 03/03/2024 9:42 AM CDT Oxygen Saturation 98% 03/03/2024 9:54 AM CDT Inhaled Oxygen Concentration - - Weight 102.1 kg (225 lb) 03/03/2024 9:42 AM CDT Height 193 cm (6' 4) 03/03/2024 9:42 AM CDT Body Mass Index 27.39 03/03/2024 9:42 AM CDT Plan of Treatment Health Maintenance Due Date Last Done Comments Colon Cancer Screening-Colonoscopy 1975 Depression Screening 1975 Hepatitis C Screening 1975 Regular Well Visit/Exam 18-64 1993 Covid-19 Vaccine ( season) 2025 05/11/2022, 09/03/2021, 11/17/2020 Influenza Vaccine (#1) 2025 , 05/02/2022, 03/27/2021, Additional history exists DTaP/Tdap/Td Vaccine (3 - Td or Tdap) 01/29/2030 01/30/2020, 06/29/2011, 10/19/2001 Hepatitis B Screening Completed 06/29/2011 , 01/23/2011, 09/18/2010 Pneumococcal vaccine <65 Aged Out No longer eligible based on patient's age to complete this topic Insurance Care Teams Flame Planer Relationship Specialty Start Date End Date [facility], Vinny Galindo MD [address] [place] [address] PCP - General 03/03/24
[2025-03-28] MEDS: DACRIOSE EYE IRRIGATION 118 ML BOTTLE (17:54)
[2025-03-28] MEDS: FLUORESCEIN SOD 1 MG/STRIP EACH EYE (17:54)
[2025-03-28] MEDS: TETRACAINE HCL 0.5% OPHTH SOLN 4 ML BTL 1 DROP EACH EYE (17:54)
--- NOTE | 2025-03-28 18:55 | ED_ITS ---
HPI - Eye Problem General Chief complaint: Eye Problems Stated complaint: right eye issue Time Seen by Provider: 03/28/25 17:19 Source: patient Mode of arrival: ambulatory Limitations: no limitations History of Present Illness HPI Narrative: Patient is a 49-year-old male who presents the ED with report of right eye foreign body sensation. Patient reports he was cleaning something today and there was a lot of dust. He felt as though he got dust into his right eye. Feels a foreign body sensation in his right eye. Denies severe pain. Denies vision changes. Does not wear contacts or glasses. Has history of open-angle glaucoma, is on Lumigan eyedrops. Follows with ophthalmology at [facility] [employer]. Related Data Home Medications ?Medication ?Instructions ?Recorded ?Confirmed ?Last Taken ?Type bimatoprost 0.01 % eye drops drp 12/02/21 12/01/21 Hi story (Lumigan) bupropion HCl 150 mg 24 hr tablet, tablet PO 12/02/21 12/01/21 History extended release Allergies Allergy/AdvReac Type Severity Reaction Status Date / Time No Known Allergies Allergy Verified 12/26/21 17:04 Review of Systems Review of Systems: All systems reviewed & are unremarkable except as noted in HPI. All systems reviewed & are unremarkable except as noted in HPI and below PMFSH Past Medical History Medical History Patient denies significant medical history Social History Social History Smoking status: Never smoker Exam Narrative: GENERAL: Well appearing, well-nourished, non-toxic, in no acute distress. HEAD: Normocephalic, atraumatic. EYES: PERRL/EOMI, L conjunctiva clear. R conjunctiva diffusely injected. No obvious FB. Mild serous drainage. No purulent drainage. No haziness of cornea. No chemosis or proptosis. RESPIRATORY: Airway patent, respirations nonlabored. CARDIOVASCULAR: Regular rate and rhythm MUSCULOSKELETAL: Moves all extremities. No gross deformities. SKIN: Warm, dry, normal color. NEURO: A&O X3. Speech clear. PSYCHIATRIC: Appropriate mood and affect. Normal interaction. Course Vital Signs Vital signs: Vital Signs Temperature 98 F 03/28/25 17:14 Pulse Rate 78 03/28/25 17:14 Respiratory Rate 16 03/28/25 17:14 Blood Pressure 136/88 03/28/25 17:14 Pulse Oximetry 99 03/28/25 17:14 Temperature 98 F 03/28/25 17:14 Pulse Rate 80 03/28/25 20:04 Respiratory Rate 18 03/28/25 20:04 Blood Pressure 129/82 03/28/25 20:04 Pulse Oximetry 100 03/28/25 20:04 MDM - Eye Problem MDM Narrative Medical decision making narrative: Patient presented to ED with right eye foreign body sensation. History of open- angle glaucoma. Vital signs stable upon arrival. Visual acuity intact. Patient denying vision changes. Intra-ocular pressures were evaluated and within normal range bilaterally: IOP R eye 19 IOP L eye 13 Fluorescein staining with Wood's lamp examination showed 2 small conjunctival abrasions at the 9 and 3:00 oclock regions in relation to cornea. No corneal abrasion. Will treat for this with ofloxacin eyedrops. Discussed case with [facility] [employer], advised will f/u with patient in the office. Patient in agreement with plan for close outpatient follow-up. States he will contact his photo print specialist tomorrow to make follow-up appointment. He was given strict return precautions. He is in agreement with plan. Discharged in stable condition Medical Records Attestation: I reviewed the patient's medical records. Discharge Plan Discharge Clinical Impression: Abrasion of right conjunctiva Qualifiers: Encounter type: initial encounter Qualified Code(s): S05.01XA - Injury of conjunctiva and corneal abrasion without foreign body, right eye, initial encounter Foreign body of right eye Qualifiers: Encounter type: initial encounter Qualified Code(s): T15.91XA - Foreign body on external eye, part unspecified, right eye, initial encounter Patient Disposition: Home Condition: Stable Instructions: Antibiotic Form, Eye Foreign Body (ED), Conjunctivitis (ED) Additional Instructions: Utilize antibiotic eyedrops as prescribed. Follow-up closely with your photo print specialist for further evaluation. Call office tomorrow to make appointment. Return to the ED for worsening or severe pain, vision changes, vision loss, unable to keep down food or drink, or any other symptoms of concern. Patient Language: Greek Prescriptions: New ofloxacin 0.3 % drops 2 drp RIGHT EYE QID Qty: 5 0RF No Action bupropion HCl 150 mg tablet extended release 24 hr PO Lumigan 0.01 % drops Claritin-D 24 Hour 10-240 mg tablet extended release 24 hr 1 tablet PO DAILY PRN (Reason: cold symptoms) Qty: 7 0RF benzonatate 200 mg capsule 200 mg PO TID PRN (Reason: cough) Qty: 30 0RF cephalexin 500 mg capsule 500 mg PO Q8H 5 Days Qty: 15 0RF Follow-up/Referrals: PHYSICIAN NOT ON STAFF,NONSTAFF [Primary Care Provider] Time of Disposition: 19:57
[2025-03-28] MEDS: OFLOXACIN 0.3% OPHTH SOLN 5 ML BTL 2 DROP RIGHT EYE (19:23)
[2025-03-28 20:04] VITALS: BP 129/82; PULSE 80; RESP 18; O2SAT 100
== END 2025-03-28 20:04 | disposition home or self-care (01) ==
PROVIDERS: Emergency Provider Physician Assistant
DX: S05.01XA Injury of conjunctiva and corneal abrasion without foreign body, right eye, initial encounter (principal); X58.XXXA Exposure to other specified factors, initial encounter
CPT/HCPCS: 99283; A9270